=== PATIENT | female | born 1965 | race Caucasian/White ===

== ENCOUNTER 2021-11-25 09:24 | Emergency (ER) | payer MEDICAID ==
[~2021-11-25] VITALS: Ht 160 cm; Wt 72.1 kg
--- NOTE | 2021-11-25 09:24 | NUR ---
BROUGHT BACK TO BED #4 AND TRIAGED. REPORT GIVEN TO IRINA
[2021-11-25 09:25] VITALS: BP_SYST 163
--- NOTE | 2021-11-25 09:45 | NUR ---
ER Dr. DENNIS at bedside examining patient.
[2021-11-25] MEDS ORDERED: predniSONE 20 MG TABLET PO ONE (10:00)
--- NOTE | 2021-11-25 10:22 | NUR ---
55 YO FEMALE PT CAME IN FROM HOME C/O TOPICAL RASH RED RAISED BUMPS CHEST AND LEGS [id number]. 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 ALLERGIES TO PAXIL AND ENVIRONMENTAL TRIGGERS. PT IS AMBULATORY VS WNL STABLE. AWAKE AND ALERT X4. PMH: ANEMIC
--- NOTE | 2021-11-25 10:34 | NUR ---
NOTIFIED LAB VIA PHONE CALL TO DRAW BLOOD
--- NOTE | 2021-11-25 10:50 | NUR ---
BLOOD FROM LAB DRAWN AND SENT
[2021-11-25 11:04] LABS: BASOPHILS % (AUTO) 0.7 % (0.0-2.0); EOSINOPHILS # (AUTO) 0.2 K/uL (0.0-0.4); EOSINOPHILS % (AUTO) 3.4 % (0.0-4.0); HEMOGLOBIN 13.4 g/dL (12.0-16.0); LYMPHOCYTES # (AUTO) 1.5 K/uL (1.0-5.5); LYMPHOCYTES % (AUTO) 28.8 % (20.5-51.5); MEAN CORPUSCULAR HEMOGLOBIN 27 pg (27-31); MEAN CORPUSCULAR HGB CONC 33 % (32-36); MEAN CORPUSCULAR VOLUME 82 fL (79.0-98.0); MONOCYTES # (AUTO) 0.4 K/uL (0.0-1.0); MONOCYTES % (AUTO) 7.2 % (1.7-9.3); NEUTROPHILS % (AUTO) 59.9 % (40.0-70.0); PLATELET COUNT (AUTO) 180 K/uL (130-430); RED BLOOD CELL COUNT(AUTO) 5.04 MIL/uL (4.2-6.2); RED CELL DISTRIBUTION WIDTH 15.6 % (9.0-15.0); WHITE BLOOD COUNT (AUTO) 5.1 K/uL (4.8-10.8)
--- NOTE | 2021-11-25 11:30 | NUR ---
Patient resting quietly. No acute distress noted. Vital signs within normal range.
[2021-11-25 11:55] LABS: ERYTHROCYTE SEDIMENTATION RATE 13 MM/HR (0-20)
[2021-11-25 11:58] LABS: CALCIUM 9.5 mg/dL (8.4-11.0); CREATININE 0.58 mg/dL (0.55-1.30); POTASSIUM 3.8 mmol/L (3.5-5.1)
[2021-11-25 12:03] LABS: TOTAL BILIRUBIN 0.2 mg/dL (0.0-1.0)
--- NOTE | 2021-11-25 12:20 | NUR ---
Patient resting quietly. No acute distress noted. Vital signs within normal range.
[2021-11-25 12:21] LABS: C-REACTIVE PROTEIN QUANT 3.4 mg/dL (0-0.5)
[2021-11-25] MEDS ORDERED: PRED20TA PO (12:32)
[2021-11-25] MEDS ORDERED: FAMO-132 PO (12:32)
[2021-11-25 12:44] VITALS: BP_SYST 163
--- NOTE | 2021-11-25 12:45 | NUR ---
Patient given written and verbal discharge instructions and verbalizes understanding. ER MD discussed with patient the results and treatment provided. Patient in stable condition. ID arm band removed. Rx of PEPCID AND PREDNISONE given. Patient educated on pain management and to follow up with PMD. Pain Scale 0/10. Opportunity for questions provided and answered. Medication side effect fact sheet provided.
== END 2021-11-25 12:45 | disposition home or self-care (01) ==
LOC: SED 09:24
DX: R21 Rash and other nonspecific skin eruption (principal); Z88.9 Allergy status to unspecified drugs, medicaments and biological substances
CPT/HCPCS: 36415; 80053; 85025; 85651; 86140; 99283; J7512

== ENCOUNTER 2024-05-03 07:35 | Emergency (ER) | payer MEDICAID ==
[~2024-05-03] VITALS: Ht 157.5 cm; Wt 73.0 kg
[~2024-05-03 07:35] MED LIST: FAMO-132 PO; PRED20TA PO
[2024-05-03 07:46] VITALS: BP_SYST 170; PULSE 83; RESP 16; TEMP 97; O2SAT 99
[2024-05-03] MEDS: HYDROcodone/ACETAMIN 10-325 MG TAB PO ONE (08:10)
[2024-05-03] MEDS: KETOROLAC TROMETHAMINE 60 MG/2 ML VIAL IM ONE (08:10)
[2024-05-03 08:26] LABS: BILIRUBIN,URINE NEGATIVE (NEGATIVE); BLOOD, URINE 1+ (NEGATIVE); CLARITY/URINE SL CLOUDY (CLEAR); COLOR,URINE YELLOW (YELLOW); GLUCOSE,URINE NEGATIVE (NEGATIVE); KETONES,URINE NEGATIVE (NEGATIVE); LEUKOCYTE ESTERASE ,URINE TRACE (NEGATIVE); NITRITE, URINE NEGATIVE (NEGATIVE); PROTEIN URINE NEGATIVE (NEGATIVE); UROBILINOGEN,URINE 0.2 (0.2-1.0)
[2024-05-03] MEDS ORDERED: TRAM50TA2 PO (08:52)
[2024-05-03] MEDS ORDERED: IBUP-1969 PO (08:52)
[2024-05-03 08:57] LABS: BACTERIA,URINE FEW /HPF (None Seen); MUCUS,URINE 1+ /LPF (None Seen)
[2024-05-03 09:07] VITALS: BP_SYST 170; PULSE 83; RESP 16; TEMP 97; O2SAT 99
== END 2024-05-03 09:08 | disposition home or self-care (01) ==
LOC: SED 07:35
DX: S33.5XXA Sprain of ligaments of lumbar spine, initial encounter (principal); Z88.8 Allergy status to other drugs, medicaments and biological substances; Z79.899 Other long term (current) drug therapy; Z79.2 Long term (current) use of antibiotics; X50.0XXA Overexertion from strenuous movement or load, initial encounter; Y93.89 Activity, other specified; Y92.89 Other specified places as the place of occurrence of the external cause; Y99.8 Other external cause status
CPT/HCPCS: 99284; 81001; 87086; 72100; 81025; 96372; J1885; 81000; 81015